=== PATIENT | female | born 1950 | race Caucasian/White ===

== ENCOUNTER 2017-01-16 17:58 | Inpatient (IN) | payer OTHER ==
[~2017-01-16] VITALS: Ht 160 cm; Wt 65.0 kg
[~2017-01-16 17:58] MED LIST changes: -AMOX875T PO; -DEXAMETHASONE SOD INJ 4 MG/ML VIAL ONE; -FENTANYL CITRATE INJ 50 MCG/1 ML 2 ML VIAL ONE; -GLYCOPYRROLATE INJ 0.2 MG/ML VIAL ONE; -MIDAZOLAM HCL 1 MG/ML 2ML VIAL ONE; -NEOSTIGMINE METHYLSULFATE 5 MG/5 ML SYR ONE; -ONDANSETRON INJ 2 MG/ML 2 ML VIAL ONE; -OPTIRAY 320 IV PRN; -OXYC-57 PO; -PROPOFOL IV EMULSION 10 MG/ML 20 ML VIAL IV ONE; -ROCURONIUM BROMIDE 10 MG/ML 5 ML VIAL ONE; -SUCCINYLCHOLINE CHLORIDE 20 MG/ML 10 ML VIAL IV ONE
[2017-01-16] MEDS ORDERED: SODIUM CHLORIDE 0.9% 1000ML 1,000 ML IV STA ×2 (18:21)
[2017-01-16] MEDS ORDERED: CEFOXITIN SOD 2 GM VIAL IV STA (18:39)
[2017-01-16] MEDS ORDERED: HYDROmorphone INJ 1 MG/ML SYR IV PRN (19:15)
[2017-01-16] MEDS ORDERED: FENTANYL CITRATE INJ 50 MCG/1 ML 2 ML VIAL IV PRN (19:15)
[2017-01-16] MEDS ORDERED: EpHEDrine SULFATE INJ 50 MG/ML AMP IV PRN (19:15)
[2017-01-16] MEDS ORDERED: ATROPINE SULFATE 0.1 MG/ML 5ML SYR IV PRN (19:15)
[2017-01-16] MEDS ORDERED: ONDANSETRON INJ 2 MG/ML 2 ML VIAL IV PRN ×2 (19:15→19:45)
[2017-01-16 19:25] LABS: BASO % 0.1 %; BASO ABS # 0.01 K/uL (0-0.2); COMPLETE YES; EOS % 0.8 %; HEMATOCRIT 39.1 % (37-47); IG% 0.1 %; LYMPH % 16.6 %; LYMPH ABS # 2.25 K/uL (1.2-3.4); MEAN CELL VOLUME 80.8 fL (80-100); MEAN CORPUSCULAR HEMOGLOBIN 27.9 pg (25-34); MEAN CORPUSCULAR HGB CONC 34.5 g/dl (32-36); MEAN PLATELET VOLUME 11.8 fL (7.4-10.4); MONO % 7.4 %; PLATELET COUNT 200 K/uL (130-400); RED BLOOD COUNT 4.84 M/uL (4.2-5.4); WHITE BLOOD COUNT 13.52 K/uL (4.8-10.8)
--- NOTE | 2017-01-16 19:35 | History and Physical ---
History & Physical Date Jan 16, 2017. History of Present Illness The patient is a 66 year old female with complaints of acute appendicitis. She presented with complaints of persistent right lower quadrant abdominal pain that began 4 days ago that has localized to her right lower quadrant. Her pain is worse with movement. She also has nausea and a fever. A CT scan shows early acute appendicitis. She notes that she ate some yogurt this morning around 0800 but has not eaten anything since. Past Medical/Surgical History Medical Problems: (1) Hypertension (2) Lyme disease (3) Meniscus tear Surgical Problems: (1) H/O thyroidectomy (2) S/P hysterectomy Additional History Hepatic Disease: No Endocrine Disorder: Yes Kidney Disease: No Hypertension: Yes Heart Disease: No Bleeding Tendencies: No Infectious Diseases: No Other: Lyme disease Allergies Coded Allergies: No Known Allergies (Verified , 09/24/15) Home Medications Scheduled Benazepril Hcl (Benazepril), 10 MG PO DAILY Calcium/Vitamin D (Os-Rodrick 500 Plus D), 1 TAB PO DAILY Hydrochlorothiazide (Hctz), 25 MG PO DAILY Levothyroxine Sodium (Synthroid), 112 MCG PO DAILY Multivitamin (Multivitamin), 1 TAB PO DAILY Potassium Chloride (K-Tabs), 10 MEQ PO 2XWK Physical Examination Skin: warm/dry, no rash Eyes: normal inspection, EOMI, sclerae normal ENT: normal ENT inspection Head: normocephalic, atraumatic Neck: supple, no adenopathy, trachea midline Respiratory/Chest: lungs clear, normal breath sounds, no respiratory distress Cardiovascular: regular rate, rhythm, no edema, no murmur Abdomen / GI: normal bowel sounds, + pertinent finding (RLQ tenderness with guarding) Back: normal inspection Extremities: normal inspection Genitourinary - Female: external genitalia normal Neurologic/Psych: no motor/sensory deficits, alert, oriented x 3 Addiitonal Comments: CT OF THE ABDOMEN AND PELVIS WITH CONTRAST CLINICAL HISTORY: Right lower quadrant abdominal pain. COMPARISON STUDY: None. TECHNIQUE: Following IV administration of 116 mL of Optiray-320, axial images of the abdomen and pelvis were obtained from the lung bases to the proximal femurs. Images were reviewed in the axial, sagittal, and coronal planes. IV contrast was administered without complication. Oral contrast was administered. CT DOSE: 530.54 mGy.cm FINDINGS: An 8 mm right hepatic lobe cyst is noted. The spleen, adrenal glands and kidneys are unremarkable. There is no hydronephrosis. There is mild dilatation of the common bile duct which measures 1 cm in caliber. Irregularity of the gallbladder fundus with multiple cystic spaces suggests adenomyomatosis, a finding of no clinical significance. There is no evidence for a bowel obstruction. The appendix is moderately dilated, measuring 1.2 cm in caliber. The appendix is fluid-filled and contains appendicolith. There is moderate periappendiceal infiltration with no free air or abscess. There is left colon diverticulosis without evidence for acute diverticulitis. There is no lymphadenopathy. No suspicious skeletal lesions are present. There is a small fat-containing umbilical hernia. IMPRESSION: 1. Acute appendicitis. Moderate periappendiceal infiltration. No free air or abscess. 2. Mild dilatation of the common bile duct, a nonspecific finding which could be correlated with obstructive liver function tests. Diagnosis Acute appendicitis ASA Classification: ASA Class II Plan of Treatment -IVF -IV mefoxin -to OR for lap appendectomy -consent obtained
[2017-01-16 19:43] LABS: BUN/CREATININE RATIO 18.1 (10-20); CALCIUM 9.3 mg/dl (8.5-10.1); CREATININE 0.63 mg/dl (0.60-1.20); POTASSIUM 3.6 mmol/L (3.5-5.1)
[2017-01-16] MEDS ORDERED: BUPIVACAINE/EPINEPHRINE 0.5% MPF 1:200,000 30 ML VIAL ONE (19:43)
[2017-01-16] MEDS ORDERED: ZOLPIDEM TARTRATE 5 MG TAB PO PRN (19:45)
[2017-01-16] MEDS ORDERED: ALUMINUM/MAGNESIUM/SIMETH (MAALOX MAX) 30 ML UDC PO PRN (19:45)
[2017-01-16] MEDS ORDERED: MoRPHine SULFATE 2 MG/ML CARP IV PRN (19:45)
[2017-01-16] MEDS ORDERED: MAGNESIUM HYDROXIDE SUSP 30 ML UDC PO PRN (19:45)
[2017-01-16] MEDS ORDERED: ACETAMINOPHEN 325 MG TAB PO PRN (19:45)
[2017-01-16] MEDS ORDERED: POLYETHYLENE (MIRALAX) 17 GM PACK PO PRN (19:45)
[2017-01-16 19:50] LABS: URINE APPEARANCE CLEAR (CLEAR); URINE BILIRUBIN NEG (NEG); URINE COLOR YELLOW; URINE EPITHELIAL CELL AUTO 0-5 /lpf (0-5); URINE NITRITE NEG (NEG); URINE SPECIFIC GRAVITY 1.027 (1.000-1.030); UROBILINOGEN NEG (NEG); ZZUR CULT IF INDIC CLEAN CATCH NO
[2017-01-16 19:51] LABS: MANUAL MICROSCOPIC REQUIRED? NO; REVIEW REQ? NO
--- NOTE | 2017-01-16 20:43 | [facility] Post Operative Brief Note ---
Immediate Operative Summary Operative Date Jan 16, 2017. Pre-Operative Diagnosis Acute Appendicitis Post-Operative Diagnosis Acute Gangerous Appendicitis Procedure(s) Performed Laparoscopic Appendectomy Surgeon Dr. Eldon Diaz Film Composer Surgeon(s) None Estimated Blood Loss 25ml Findings Above Specimens A. Appendix Drains RLQ rodger Anesthesia GETA Complication(s) None Disposition Recovery Room / PACU
[2017-01-16] MEDS ORDERED: MoRPHine SULFATE 4 MG/ML 1 ML CARP\\VIAL IV PRN (20:45)
[2017-01-16] MEDS ORDERED: FENTANYL CITRATE INJ 50 MCG/1 ML 2 ML VIAL ONE (21:00)
--- NOTE | 2017-01-16 21:06 | OPERATIVE REPORT ---
DATE OF OPERATION: 01/16/2017 PREOPERATIVE DIAGNOSIS: Acute appendicitis. POSTOPERATIVE DIAGNOSIS: Acute gangrenous appendicitis. PROCEDURE PERFORMED: Laparoscopic appendectomy. SURGEON: Dr. Eldon Diaz. FOIL SPOOLER: None. ANESTHESIA: General endotracheal with 0.5% Marcaine with epinephrine local. ESTIMATED BLOOD LOSS: 25 mL. COMPLICATIONS: None. SPECIMENS: Appendix, sent to pathology. DRAINS: Right lower quadrant Pino drain placed. INDICATION FOR PROCEDURE: This is a 66-year-old white female who was admitted through the ER with 4 days of abdominal pain and had a CT scan which showed acute appendicitis. On exam, she had peritoneal signs. We recommended a laparoscopic appendectomy. We talked about the risk of an open procedure, bowel or blood vessel injury, abscess, bleeding, or postop wound problems. She understands this and wishes to proceed. DESCRIPTION OF PROCEDURE: The patient was taken to the OR and underwent excellent general endotracheal anesthesia. Abdomen was prepped and draped in normal sterile fashion. Transverse supraumbilical incision was made and a Veress needle was inserted into peritoneal cavity with upper tension on her abdominal wall. Good pneumoperitoneum was then achieved to 15 mmHg pressure. A visualized 11 port was then placed as the Veress was removed. A 5 suprapubic, a 5 right upper quadrant and a 12 left lower quadrant port were placed in normal fashion. Some adhesions were taken down from the pelvis. She had a large right lower quadrant phlegmon. The patient was placed in head down and rolled to the left. The omentum was rolled back, her appendix could be seen plastered to her right lower quadrant. Using blunt dissection, this was freed. This was also stuck to the wall of the colon. A grasper was used to grasp the cecum at the tenia and the base of the appendix was identified. Dissection was then taken at the base here to go through the mesentery window. Once this was done, the base of the appendix was freed. A MARIANNA 45 purple load was used to transect the appendix at its base. The staple line was intact and had minimal bleeding. Once this was done, the rest of the mesoappendix was taken down with a harmonic scalpel. The appendix itself was gangrenous and we made a small rip in the appendix and tried to mobilize it, but there was no free spillage of fecal material. The appendix was then brought out with an Endobag and sent for pathologic evaluation. The pneumoperitoneum and the port were replaced. A liter and half of irrigation was used to irrigate the right lower quadrant. There was no sign of bleeding, no sign of any infectious material. The pelvis looked fine, the terminal ileum looked fine and no other abnormalities were noted. A Pino drain was then placed through the suprapubic port into the right lower quadrant and secured with nylon suture. The rest of the ports were removed and pneumoperitoneum was decompressed. 0 Vicryl was used to close the fascial defect at 11 and 12 ports. Skin was closed with interrupted Vicryls, Steri-Strips and benzoin were used to reinforce the incision and sterile dressings were applied. The patient tolerated the procedure well without any complications, sent to post-recovery for a period of observation and be sent to floor for her care. I attest to the content of the Intraoperative Record and any orders documented therein. Any exceptio ns are noted below.
[2017-01-16] MEDS ORDERED: ONDANSETRON INJ 2 MG/ML 2 ML VIAL ONE (21:07)
[2017-01-16] MEDS ORDERED: HYDROmorphone INJ 2 MG/ML SYR/VIAL ONE (21:24)
--- NOTE | 2017-01-16 21:36 | Anesthesiology Progress Note ---
Anesthesia Post Op Note Date & Time Jan 16, 2017 at 21:36 Vital Signs Pain Intensity: 8.0 Vital Signs Past 12 Hours Date Time Temp Pulse Resp B/P Pulse Ox O2 Delivery O2 Flow Rate FiO2 01/16/17 21:25 75 16 131/87 95 Mask 5 01/16/17 21:15 103 20 146/85 95 Mask 10 01/16/17 21:05 93 20 168/74 96 Mask 10 01/16/17 21:01 37.0 95 20 178/79 96 Mask 10 01/16/17 19:38 37.0 91 18 154/87 98 01/16/17 18:29 37.7 97 16 165/90 96 Room Air Notes Mental Status: alert / awake / arousable, participated in evaluation Pt Amnestic to Procedure: Yes Nausea / Vomiting: adequately controlled Pain: adequately controlled Airway Patency, RR, SpO2: stable & adequate BP & HR: stable & adequate Hydration State: stable & adequate Anesthetic Complications: no major complications apparent
--- NOTE | 2017-01-16 21:36 | EMERGENCY ROOM VISIT NOTE ---
History Report prepared by Cassandra: Cassie Moseley Under the Supervision of: Dr. Michael Miller M.D. First contact with patient: 18:21 Chief Complaint: ABDOMINAL PAIN Stated Complaint: ABD PAIN,APPENDICITIS History of Present Illness The patient is a 66 year old female who presents to the Emergency Room with complaints of persistent right lower quadrant abdominal pain that began 4 days ago. Since then, it has localized to her right lower quadrant. Her pain is worse with movement. It occasionally radiates through her upper abdomen. She also complains of occasional nausea. Today, the patient was seen by her PCP in [facility] and had an abdominal/pelvis CT scan. Her CT scan revealed acute appendicitis. She notes that she ate some yogurt this morning around 0800 but has not eaten anything since. Pt denies LOC, headache, fevers, chills, diaphoresis, visual changes, neck pain, chest pain, breathing difficulties, vomiting, back pain, melena, hematochezia, urinary symptoms, numbness, weakness , lymphadenopathy, rash, or other complaints. Source of History: patient Onset: 4 days ago Position: abdomen (RLQ) Timing: other (persistent) Modifying Factors (Worsening): movement Associated Symptoms: + nausea Review of Systems See HPI for pertinent positives and negatives. A total of ten systems were reviewed and were otherwise negative. Past Medical & Surgical Medical Problems: (1) Acute appendicitis (2) Hypertension (3) Lyme disease (4) Meniscus tear Surgical Problems: (1) H/O thyroidectomy (2) S/P hysterectomy Family History FH: lung cancer SISTER Social History Smoking Status: Former Smoker Alcohol Use: none Drug Use: none Marital Status: Housing Status: unknown Occupation Status: employed Current/Historical Medications Scheduled Benazepril Hcl (Benazepril), 10 MG PO DAILY Calcium/Vitamin D (Os-Rodrick 500 Plus D), 1 TAB PO DAILY Hydrochlorothiazide (Hctz), 25 MG PO DAILY Levothyroxine Sodium (Synthroid), 112 MCG PO DAILY Multivitamin (Multivitamin), 1 TAB PO DAILY Potassium Chloride (K-Tabs), 10 MEQ PO 2XWK Allergies Coded Allergies: No Known Allergies (Verified , 09/24/15) Physical Exam Vital Signs Date Time Temp Pulse Resp B/P Pulse Ox O2 Delivery O2 Flow Rate FiO2 01/16/17 21:25 75 16 131/87 95 Mask 5 3/13/17 21:15 103 20 146/85 95 Mask 10 01/16/17 21:05 93 20 168/74 96 Mask 10 01/16/17 21:01 37.0 95 20 178/79 96 Mask 10 01/16/17 19:38 37.0 91 18 154/87 98 01/16/17 18:29 37.7 97 16 165/90 96 Room Air Physical Exam GENERAL: Awake, alert, well-appearing, in no distress HENT: Normocephalic, atraumatic. Oropharynx unremarkable. EYES: Normal conjunctiva. Sclera non-icteric. NECK: Supple. No nuchal rigidity. FROM. No JVD. RESPIRATORY: Clear to auscultation. CARDIAC: Borderline tachycardic rate, normal rhythm. Extremities warm and well perfused. Pulses equal. ABDOMEN: Soft, non-distended. Right lower quadrant tenderness to percussion with rebound and guarding. No masses. RECTAL: Deferred. MUSCULOSKELETAL: Chest examination reveals no tenderness. The back is symmetrical on inspection without obvious abnormality. There is no CVA tenderness to palpation. No joint edema. LOWER EXTREMITIES: Calves are equal size bilaterally and non-tender. No edema. No discoloration. NEURO: Normal sensorium. No sensory or motor deficits noted. SKIN: No rash or jaundice noted. Medical Decision & Procedures ER Provider Diagnostic Interpretation: Radiology results as stated below per my review and radiologist interpretation: CT OF THE ABDOMEN AND PELVIS WITH CONTRAST CLINICAL HISTORY: Right lower quadrant abdominal pain. COMPARISON STUDY: None. TECHNIQUE: Following IV administration of 116 mL of Optiray-320, axial images of the abdomen and pelvis were obtained from the lung bases to the proximal femurs. Images were reviewed in the axial, sagittal, and coronal planes. IV contrast was administered without complication. Oral contrast was administered. CT DOSE: 530.54 mGy.cm FINDINGS: An 8 mm right hepatic lobe cyst is noted. The spleen, adrenal glands and kidneys are unremarkable. There is no hydronephrosis. There is mild dilatation of the common bile duct which measures 1 cm in caliber. Irregularity of the gallbladder fundus with multiple cystic spaces suggests adenomyomatosis, a finding of no clinical significance. There is no evidence for a bowel obstruction. The appendix is moderately dilated, measuring 1.2 cm in caliber. The appendix is fluid-filled and contains appendicolith. There is moderate periappendiceal infiltration with no free air or abscess. There is left colon diverticulosis without evidence for acute diverticulitis. There is no lymphadenopathy. No suspicious skeletal lesions are present. There is a small fat-containing umbilical hernia. IMPRESSION: 1. Acute appendicitis. Moderate periappendiceal infiltration. No free air or abscess. 2. Mild dilatation of the common bile duct, a nonspecific finding which could be correlated with obstructive liver function tests. Electronically signed by: Miguel Waters M.D. 01/16/2017 5:19 PM Dictated Date/Time: 01/16/2017 5:13 PM Laboratory Results 01/16/17 19:05 Red Blood Count 4.84, Mean Corpuscular Volume 80.8, Mean Corpuscular Hemoglobin 27.9, Mean Corpuscular Hemoglobin Concent 34.5, Mean Platelet Volume 11.8, Neutrophils (%) (Auto) 75.0, Lymphocytes (%) (Auto) 16.6, Monocytes (%) (Auto) 7.4, Eosinophils (%) (Auto) 0.8, Basophils (%) (Auto) 0.1, Neutrophils # (Auto) 10.13, Lymphocytes # (Auto) 2.25, Monocytes # (Auto) 1.00, Eosinophils # (Auto) 0.11, Basophils # (Auto) 0.01 01/16/17 19:05 Test 01/16/17 19:05 White Blood Count 13.52 K/uL (4.8-10.8) Red Blood Count 4.84 M/uL (4.2-5.4) Hemoglobin 13.5 g/dL (12.0-16.0) Hematocrit 39.1 % (37-47) Mean Corpuscular Volume 80.8 fL (80-100) Mean Corpuscular Hemoglobin 27.9 pg (25-34) Mean Corpuscular Hemoglobin Concent 34.5 g/dl (32-36) Platelet Count 200 K/uL (130-400) Mean Platelet Volume 11.8 fL (7.4-10.4) Neutrophils (%) (Auto) 75.0 % Lymphocytes (%) (Auto) 16.6 % Monocytes (%) (Auto) 7.4 % Eosinophils (%) (Auto) 0.8 % Basophils (%) (Auto) 0.1 % Neutrophils # (Auto) 10.13 K/uL (1.4-6.5) Lymphocytes # (Auto) 2.25 K/uL (1.2-3.4) Monocytes # (Auto) 1.00 K/uL (0.11-0.59) Eosinophils # (Auto) 0.11 K/uL (0-0.5) Basophils # (Auto) 0.01 K/uL (0-0.2) RDW Standard Deviation 40.2 fL (36.4-46.3) RDW Coefficient of Variation 13.5 % (11.5-14.5) Immature Granulocyte % (Auto) 0.1 % Immature Granulocyte # (Auto) 0.02 K/uL (0.00-0.02) Urine Color YELLOW Urine Appearance CLEAR (CLEAR) Urine pH 7.0 (4.5-7.5) Urine Specific [place] 1.027 (1.000-1.030) Urine Protein NEG (NEG) Urine Glucose (UA) NEG (NEG) Urine Ketones NEG (NEG) Urine Occult Blood NEG (NEG) Urine Nitrite NEG (NEG) Urine Bilirubin NEG (NEG) Urine Urobilinogen NEG (NEG) Urine Leukocyte Esterase TRACE (NEG) Urine WBC (Auto) 1-5 /hpf (0-5) Urine RBC (Auto) 0-4 /hpf (0-4) Urine Hyaline Casts (Auto) 0 /lpf (0-5) Urine Epithelial Cells (Auto) 0-5 /lpf (0-5) Urine Bacteria (Auto) NEG (NEG) Anion Gap 8.0 mmol/L (3-11) Est Creatinine Clear Calc Drug Dose 77.5 ml/min Estimated GFR () 106.8 Estimated GFR (Non- 92.2 BUN/Creatinine Ratio 18.1 (10-20) Calcium Level 9.3 mg/dl (8.5-10.1) Total Bilirubin 0.8 mg/dl (0.2-1) Direct Bilirubin 0.2 mg/dl (0-0.2) Aspartate Amino Transf (AST/SGOT) 17 U/L (15-37) Alanine Aminotransferase (ALT/SGPT) 29 U/L (12-78) Alkaline Phosphatase 93 U/L (45-117) Total Protein 7.8 gm/dl (6.4-8.2) Albumin 3.6 gm/dl (3.4-5.0) Lipase 107 U/L (73-393) Laboratory results reviewed by me Medications Administered Medications (Trade) Dose Ordered Sig/[facility] Route Start Time Stop Time Status Last Admin Dose Admin Sodium Chloride 1,000 ml @ 125 mls/hr Q8H STAT IV 01/16/17 18:21 01/17/17 02:20 01/16/17 18:21 125 MLS/HR Sodium Chloride (Nss 1000ml) 1,000 ml @ 999 mls/hr Q1H1M STAT IV 01/16/17 18:21 01/16/17 19:21 DC 01/16/17 18:21 999 MLS/HR Cefoxitin Sodium (Mefoxin IV) 2,000 mg NOW STAT IV 01/16/17 18:39 01/16/17 18:40 DC 01/16/17 18:39 2,000 MG Bupivacaine HCl/ Epinephrine Bitart (Sensorcaine/ Epinephrine 0.5% Mpf 1:200,000) 30 ml STK-MED ONCE .ROUTE 01/16/17 19:43 01/16/17 19:47 DC 01/16/17 19:43 20 ML Fentanyl Citrate (Fentanyl Inj) 100 mcg STK-MED ONCE .ROUTE 01/16/17 21:00 01/16/17 21:04 DC 01/16/17 21:19 25 MCG Ondansetron HCl (Zofran Inj) 4 mg STK-MED ONCE .ROUTE 01/16/17 21:07 01/16/17 21:10 DC 01/16/17 21:31 4 MG Hydromorphone HCl (Dilaudid Inj) 2 mg STK-MED ONCE .ROUTE 01/16/17 21:24 01/16/17 21:27 DC 01/16/17 21:25 0.25 MG ECG Indication: abdominal pain Rate (beats per minute): 103 Rhythm: sinus tachycardia Findings: Q waves (Septal), no acute ischemic change, no ectopy ED Course 182: Ordered NSS 1000 ml @ 999 mls/hr IV, NSS 1000 ml @ 125 mls/hr IV. 1836: The patient was evaluated in room B4. A complete history and physical exam was performed. I discussed the test results and treatment plan with her. The patient will be evaluated for further management. 183: Ordered Mefoxin 2000 mg IV. 1849: I discussed the case with Dr. Diaz - General Surgery. The patient will be evaluated for further management. Medical Decision Triage Nursing notes reviewed. The patient's presentation and history were concerning for abdominal pain. Etiologies such as appendicitis, diverticulitis, obstruction, inflammatory bowel disease, renal colic, PUD, biliary pathology, pancreatitis, mesenteric ischemia, aortic pathology, infections, genitourinary, UTI, perforated viscus, as well as others were entertained. The patient was evaluated. Her abdominal examination was concerning for appendicitis. She had a leukocytosis on CBC. LFTs were unremarkable. The patient also had appendicitis on her CT scan. Consultation was made with general surgery. The patient was given normal saline. She was nothing by mouth. She declined analgesia. The patient was given Mefoxin. The patient was taken to the operative suite for further management. The chart was completed utilizing [employer] Speech voice recognition software. Grammatical errors, random word insertions, pronoun errors, and incomplete sentences are an occasional consequence of this system due to software limitations, ambient noise, and hardware issues. Any formal questions or concerns about the content, text, or information contained within the body of this dictation should be directly addressed to the physician for clarification. Consults Time Called: 1846 Consulting Physician: Dr. Diaz - General Surgery Returned Call: [phone] I discussed the case with him. The patient will be evaluated for further management. Impression Primary Impression: Acute appendicitis Scribe Attestation The scribe's documentation has been prepared under my direction and personally reviewed by me in its entirety. I confirm that the note above accurately reflects all work, treatment, procedures, and medical decision making performed by me. Departure Information Dispostion Being Evaluated By Surgeon Daryl Artis M.D. (PCP) Patient Instructions My [facility]
[2017-01-16 21:55] VITALS: O2SAT 94
[2017-01-16] MEDS: LACTATED RINGER'S 1000ML 1,000 ML IV SCH (22:08)
[2017-01-16 22:09] VITALS: BP 147/75; PULSE 108; TEMP 37; Ht 160 cm; Wt 65.0 kg
[2017-01-16 22:30] VITALS: BP 149/72; PULSE 111; TEMP 37.1; O2SAT 91
[2017-01-16 23:00] VITALS: BP 116/77; PULSE 115; TEMP 36.9; O2SAT 93
[2017-01-17] VITALS (13 sets, daily range): BP systolic 96–120; BP diastolic 55–74; PULSE 69–117; TEMP 36.7–37.6; O2SAT 85–98
[2017-01-17] MEDS: CEFOXITIN IV 2,000 MG in DEXTROSE 5% 50ML 50 ML IV SCH ×3 (01:51→18:06)
[2017-01-17] MEDS: OXYCODONE/ACETAMINOPHEN 5-325 TAB PO PRN ×3 (05:29→22:11)
[2017-01-17] MEDS: LEVOTHYROXINE 112 MCG TAB PO SCH (05:29)
[2017-01-17] MEDS: LACTATED RINGER'S 1000ML 1,000 ML IV SCH ×2 (05:30→15:39)
[2017-01-17] MEDS ORDERED: COUGH DROP (SUGAR FREE) LOZ 24 LOZ/1 BOX ONE (07:36)
[2017-01-17] MEDS: ENALAPRIL MALEATE 10 MG TAB PO SCH (08:59)
[2017-01-17] MEDS: HYDROCHLOROTHIAZIDE 25 MG TAB PO SCH (08:59)
[2017-01-17] MEDS: MULTIVITAMIN TAB PO SCH (09:00)
--- NOTE | 2017-01-17 09:05 | Surgery Progress Note ---
Surgery Progress Note Date of Service Jan 17, 2017. Subjective Post OP Day: 1 + complaints (some emesis), + diet (clears), + feeling well, + nausea, + vomiting, No bowel movement, No flatus Objective Vital Signs: Date Time Temp Pulse Resp B/P Pulse Ox O2 Delivery O2 Flow Rate FiO2 01/17/17 08:28 93 Nasal Cannula 2.0 01/17/17 08:06 85 Room Air 01/17/17 07:45 96 2.0 01/17/17 07:15 37.6 105 16 118/74 96 Nasal Cannula 2.0 01/17/17 05:30 93 Nasal Cannula 2.0 01/17/17 03:17 36.7 102 17 112/70 98 Nasal Cannula 3.0 01/17/17 01:00 37.0 115 16 120/72 96 Nasal Cannula 3.0 01/17/17 00:00 37.3 117 15 96/55 94 Nasal Cannula 3.0 01/16/17 23:00 36.9 115 18 116/77 93 Nasal Cannula 3.0 01/16/17 22:30 37.1 111 16 149/72 91 Nasal Cannula 3.0 01/16/17 22:09 37.0 108 16 147/75 01/16/17 21:55 94 Nasal Cannula 3.0 01/16/17 21:45 72 16 114/67 95 Nasal Cannula 3 01/16/17 21:35 36.9 72 16 142/73 95 Nasal Cannula 3 01/16/17 21:25 75 16 131/87 95 Mask 5 01/16/17 21:15 103 20 146/85 95 Mask 10 01/16/17 21:15 Nasal Cannula 3.0 01/16/17 21:05 93 20 168/74 96 Mask 10 01/16/17 21:01 37.0 95 20 178/79 96 Mask 10 01/16/17 19:38 37.0 91 18 154/87 98 01/16/17 18:29 37.7 97 16 165/90 96 Room Air Physical Exam: Pino drainage (serosanguinous) General Appearance: WD/WN, no apparent distress Head: normocephalic, atraumatic Neck: supple, trachea midline Respiratory/Chest: lungs clear Cardiovascular: regular rate, rhythm Abdomen: normal bowel sounds, soft, + distended, + tenderness (mild) Incision(s): intact (dressings) Extremities: non-tender, no pedal edema Laboratory Results: Results Past 24 Hours Test 01/16/17 19:05 Range/Units White Blood Count 13.52 4.8-10.8 K/uL Red Blood Count 4.84 4.2-5.4 M/uL Hemoglobin 13.5 12.0-16.0 g/dL Hematocrit 39.1 37-47 % Mean Corpuscular Volume 80.8 80-100 fL Mean Corpuscular Hemoglobin 27.9 25-34 pg Mean Corpuscular Hemoglobin Concent 34.5 32-36 g/dl Platelet Count 200 130-400 K/uL Mean Platelet Volume 11.8 7.4-10.4 fL Neutrophils (%) (Auto) 75.0 % Lymphocytes (%) (Auto) 16.6 % Monocytes (%) (Auto) 7.4 % Eosinophils (%) (Auto) 0.8 % Basophils (%) (Auto) 0.1 % Neutrophils # (Auto) 10.13 1.4-6.5 K/uL Lymphocytes # (Auto) 2.25 1.2-3.4 K/uL Monocytes # (Auto) 1.00 0.11-0.59 K/uL Eosinophils # (Auto) 0.11 0-0.5 K/uL Basophils # (Auto) 0.01 0-0.2 K/uL RDW Standard Deviation 40.2 36.4-46.3 fL RDW Coefficient of Variation 13.5 11.5-14.5 % Immature Granulocyte % (Auto) 0.1 % Immature Granulocyte # (Auto) 0.02 0.00-0.02 K/uL Urine Color YELLOW Urine Appearance CLEAR CLEAR Urine pH 7.0 4.5-7.5 Urine Specific Goodrich 1.027 1.000-1.030 Urine Protein NEG NEG Urine Glucose (UA) NEG NEG Urine Ketones NEG NEG Urine Occult Blood NEG NEG Urine Nitrite NEG NEG Urine Bilirubin NEG NEG Urine Urobilinogen NEG NEG Urine Leukocyte Esterase TRACE NEG Urine WBC (Auto) 1-5 0-5 /hpf Urine RBC (Auto) 0-4 0-4 /hpf Urine Hyaline Casts (Auto) 0 0-5 /lpf Urine Epithelial Cells (Auto) 0-5 0-5 /lpf Urine Bacteria (Auto) NEG NEG Sodium Level 135 136-145 mmol/L Potassium Level 3.6 3.5-5.1 mmol/L Chloride Level 94 98-107 mmol/L Carbon Dioxide Level 33 21-32 mmol/L Anion Gap 8.0 3-11 mmol/L Blood Urea Nitrogen 11 7-18 mg/dl Creatinine 0.63 0.60-1.20 mg/dl Est Creatinine Clear Calc Drug Dose 77.5 ml/min Estimated GFR () 106.8 Estimated GFR (Non- 92.2 BUN/Creatinine Ratio 18.1 10-20 Random Glucose 97 70-99 mg/dl Calcium Level 9.3 8.5-10.1 mg/dl Total Bilirubin 0.8 0.2-1 mg/dl Direct Bilirubin 0.2 0-0.2 mg/dl Aspartate Amino Transf (AST/SGOT) 17 15-37 U/L Alanine Aminotransferase (ALT/SGPT) 29 12-78 U/L Alkaline Phosphatase 93 45-117 U/L Total Protein 7.8 6.4-8.2 gm/dl Albumin 3.6 3.4-5.0 gm/dl Lipase 107 73-393 U/L Assessment & Plan Acute gangrenous appendicitis -con't IV abx 1-2 more days -clears -await bowel function -leave drain till discharge -labs in AM
[2017-01-17] MEDS ORDERED: AMOX875T PO (09:09)
[2017-01-17] MEDS ORDERED: OXYC-57 PO (09:09)
--- NOTE | 2017-01-17 09:13 | Discharge Instructions ---
Discharge Instructions Date of Service Jan 17, 2017. Admission Reason for Admission: Acute Appendicitis Discharge Discharge Diagnosis / Problem: gangrenous appendicitis Discharge Goals Goal(s): Therapeutic intervention Activity Recommendations Activity Limitations: per Instructions/Follow-up section Lifting Limitations: no more than 25 pounds Exercise/Sports Limitations: until after follow-up appointment May Resume Sexual Activity: when tolerated Shower/Bathe: no limitations Driving or Machine Use: resume 3 days after discharge (as long as not taking narcotics) . Current Hospital Diet Patient's current hospital diet: Clear Liquid Diet Discharge Diet Recommended Diet: Regular Diet Procedures Procedures Performed: Laparoscopic Appendectomy Pending Studies Studies pending at discharge: no Laboratory Results Lipid Panel Test 10/25/16 10:37 Range/Units Triglycerides Level 116 0-150 mg/dl Cholesterol Level 243 H 0-200 mg/dl HDL Cholesterol 69 mg/dl Cholesterol/HDL Ratio 3.5 LDL Cholesterol, Calculated 151 mg/dl Work Instructions Return To Work: after follow-up Medical Emergencies . Who to Call and When: Medical Emergencies: If at any time you feel your situation is an emergency, please call 911 immediately. . Non-Emergent Contact Non-Emergency issues call your: Primary Care Provider, Surgeon Call Non-Emergent contact if: temperature is above 101.5, your pain is not controlled, your pain is worsening, your pain is concerning you, wound has increased redness, wound has increased pain, you have any medication questions . "Provider Documentation" section prepared by Eldon Diaz. VTE Core Measure Inpt VTE Proph given/why not?: SCD's [place] Drug Monitoring Program Search Results: patient reviewed within database
[2017-01-18] MEDS: LACTATED RINGER'S 1000ML 1,000 ML IV SCH ×3 (01:23→21:30)
[2017-01-18] MEDS: LEVOTHYROXINE 112 MCG TAB PO SCH (05:46)
[2017-01-18 07:31] VITALS: BP 110/63; PULSE 83; TEMP 36.7; O2SAT 95
[2017-01-18 07:58] LABS: BUN/CREATININE RATIO 24.8 (10-20); CREATININE 0.56 mg/dl (0.60-1.20); POTASSIUM 3.8 mmol/L (3.5-5.1)
[2017-01-18 08:03] LABS: ALB/GLOB RATIO 0.7 (0.9-2)
[2017-01-18 08:06] LABS: COMPLETE YES; EOS % 0.8 %; HEMATOCRIT 30.2 % (37-47); IG% 0.3 %; LYMPH ABS # 1.27 K/uL (1.2-3.4); MEAN CELL VOLUME 81.6 fL (80-100); MEAN CORPUSCULAR HEMOGLOBIN 26.8 pg (25-34); MEAN CORPUSCULAR HGB CONC 32.8 g/dl (32-36); MEAN PLATELET VOLUME 11.4 fL (7.4-10.4); NEUT % 75.9 %; PLATELET COUNT 153 K/uL (130-400); WHITE BLOOD COUNT 9.05 K/uL (4.8-10.8)
--- NOTE | 2017-01-18 08:12 | Surgery Progress Note ---
Surgery Progress Note Date of Service Jan 18, 2017. Subjective Post OP Day: 2 (s/p laparoscopic appendectomy) + diet (tolerating clear liquids), + feeling well, + nausea (last evening, believe it was from the pain medication), + pain controlled, No SOB, No bowel movement, No chest pain, No complaints, No flatus, No vomiting Objective Vital Signs: Date Time Temp Pulse Resp B/P Pulse Ox O2 Delivery O2 Flow Rate FiO2 01/18/17 07:31 36.7 83 16 110/63 95 Room Air 01/17/17 23:55 Nasal Cannula 1.0 01/17/17 22:53 36.7 69 16 100/63 97 Nasal Cannula 2.0 01/17/17 18:55 93 Room Air 01/17/17 16:15 96 Nasal Cannula 1.0 01/17/17 15:21 37.0 99 18 107/69 96 Nasal Cannula 2.0 01/17/17 08:55 102/63 01/17/17 08:28 93 Nasal Cannula 2.0 Physical Exam: TAWNY drainage (serosanguineous ) General Appearance: WD/WN, no apparent distress Head: normocephalic, atraumatic Respiratory/Chest: no respiratory distress, no accessory muscle use Abdomen: normal bowel sounds, non distended, soft, no organomegaly, + tenderness (appropriate post op) Incision(s): clean (dressings clean and dry), dry Extremities: normal range of motion Laboratory Results: Results Past 24 Hours Test 01/18/17 06:50 Range/Units White Blood Count 9.05 4.8-10.8 K/uL Red Blood Count 3.70 4.2-5.4 M/uL Hemoglobin 9.9 12.0-16.0 g/dL Hematocrit 30.2 37-47 % Mean Corpuscular Volume 81.6 80-100 fL Mean Corpuscular Hemoglobin 26.8 25-34 pg Mean Corpuscular Hemoglobin Concent 32.8 32-36 g/dl Platelet Count 153 130-400 K/uL Mean Platelet Volume 11.4 7.4-10.4 fL Neutrophils (%) (Auto) 75.9 % Lymphocytes (%) (Auto) 14.0 % Monocytes (%) (Auto) 9.0 % Eosinophils (%) (Auto) 0.8 % Basophils (%) (Auto) 0.0 % Neutrophils # (Auto) 6.87 1.4-6.5 K/uL Lymphocytes # (Auto) 1.27 1.2-3.4 K/uL Monocytes # (Auto) 0.81 0.11-0.59 K/uL Eosinophils # (Auto) 0.07 0-0.5 K/uL Basophils # (Auto) 0.00 0-0.2 K/uL RDW Standard Deviation 40.7 36.4-46.3 fL RDW Coefficient of Variation 13.4 11.5-14.5 % Immature Granulocyte % (Auto) 0.3 % Immature Granulocyte # (Auto) 0.03 0.00-0.02 K/uL Sodium Level 135 136-145 mmol/L Potassium Level 3.8 3.5-5.1 mmol/L Chloride Level 96 98-107 mmol/L Carbon Dioxide Level 32 21-32 mmol/L Anion Gap 7.0 3-11 mmol/L Blood Urea Nitrogen 14 7-18 mg/dl Creatinine 0.56 0.60-1.20 mg/dl Est Creatinine Clear Calc Drug Dose 87.2 ml/min Estimated GFR () 111.0 Estimated GFR (Non- 95.8 BUN/Creatinine Ratio 24.8 10-20 Random Glucose 98 70-99 mg/dl Total Bilirubin 0.5 0.2-1 mg/dl Aspartate Amino Transf (AST/SGOT) 11 15-37 U/L Alanine Aminotransferase (ALT/SGPT) 16 12-78 U/L Alkaline Phosphatase 59 45-117 U/L Total Protein 5.8 6.4-8.2 gm/dl Albumin 2.4 3.4-5.0 gm/dl Globulin 3.4 2.5-4.0 gm/dl Albumin/Globulin Ratio 0.7 0.9-2 Assessment & Plan POD # 2 s/p Laparoscopic Appendectomy - afebrile - vital signs stable - no return of bowel function yet, normal bowel sounds - abdominal pain controlled and minimal - Leukocytosis resolved Plan: Continue IV antibiotics Encourage ambulation Await return of bowel function to advance diet, continue clears Will leave TAWNY drain until discharge Dr. Mensah has seen and examined patient, agrees with above stated findings and treatment plan. Pt seen and examined. Doing well but still awaiting return of bowel function. Agree with assessment and plan as above.
[2017-01-18] MEDS: HYDROCHLOROTHIAZIDE 25 MG TAB PO SCH (08:27)
[2017-01-18] MEDS: ENALAPRIL MALEATE 10 MG TAB PO SCH (08:27)
[2017-01-18 09:06] LABS: CALCIUM 7.9 mg/dl (8.5-10.1)
[2017-01-18] MEDS: MULTIVITAMIN TAB PO SCH (10:24)
[2017-01-18 15:14] VITALS: BP 123/69; PULSE 64; TEMP 36.8; O2SAT 93
[2017-01-18 19:30] VITALS: BP 161/73; PULSE 74; O2SAT 94
[2017-01-18 22:54] VITALS: BP 138/68; PULSE 93; TEMP 37; O2SAT 88
[2017-01-18 23:10] VITALS: O2SAT 94
[2017-01-18 23:25] VITALS: O2SAT 94
[2017-01-19] MEDS: LEVOTHYROXINE 112 MCG TAB PO SCH (06:15)
[2017-01-19 07:05] VITALS: BP 158/76; PULSE 91; TEMP 37.1; O2SAT 92
[2017-01-19] MEDS: LACTATED RINGER'S 1000ML 1,000 ML IV SCH (07:59)
[2017-01-19] MEDS: ENALAPRIL MALEATE 10 MG TAB PO SCH (09:12)
[2017-01-19] MEDS: HYDROCHLOROTHIAZIDE 25 MG TAB PO SCH (09:12)
[2017-01-19] MEDS: MULTIVITAMIN TAB PO SCH (09:14)
--- NOTE | 2017-01-19 10:50 | Clinical Documentation Query ---
MS. AGARWALSHASTA : CLINICAL DOCUMENTATION QUERY Patient is a 66 year old female who on 01/16 underwent laparoscopic appendectomy for acute gangrenous appendicitis. EBL for the procedure was 25 ml's with subsequently documented losses to date totaling an additional 370 ml's. Preoperative hemoglobin and hematocrit were 13.5 g/dl and 39.1%. POD #2, repeat values are 9.9 g/dl and 30.2%. Net I/O is positive for only about 120 ml's since admission. She is being monitored with I/O and serial hematology. In your clinical opinion is this patient being managed for: ( ) Acute blood loss anemia ( ) Other explanation of clinical findings (Please Explain) ( ) Unable to determine (Please Define) ( ) Need to Discuss ( ) Not Agree The medical record reflects the following clinical findings, treatment, and risk factors. Clinical Indicators: As above Treatment:She is being monitored with I/O and serial hematology. Risk Factors: Acute perioperative blood losses. Please clarify and document your clinical opinion in the progress notes and discharge summary. Terms such as "probable", "suspected", "likely", "questionable", "possible", or "still to be ruled out" are acceptable. IF IN AGREEMENT, YOU MUST DOCUMENT ABOVE DIAGNOSTIC STATEMENT IN DAILY PROGRESS NOTES AND DISCHARGE SUMMARY. This document is not part of the patient's record. Thank You, Brady Trotter, BOZENA [phone]
--- NOTE | 2017-01-19 10:57 | Surgery Progress Note ---
Surgery Progress Note Date of Service Jan 19, 2017. Subjective Post OP Day: 3 + ambulating, + bowel movement, + diet (tolerating clear liquids), + feeling well, + flatus, + pain controlled, No SOB, No chest pain, No complaints, No nausea, No vomiting Objective Vital Signs: Date Time Temp Pulse Resp B/P Pulse Ox O2 Delivery O2 Flow Rate FiO2 01/19/17 10:51 Room Air 01/19/17 07:05 37.1 91 17 158/76 92 Room Air 01/18/17 23:25 94 Room Air 01/18/17 23:10 94 Nasal Cannula 1.0 01/18/17 22:54 37.0 93 16 138/68 88 Room Air 01/18/17 19:30 74 161/73 94 Room Air 01/18/17 16:10 Room Air 01/18/17 15:14 36.8 64 16 123/69 93 Room Air General Appearance: WD/WN, no apparent distress Head: normocephalic, atraumatic Neck: trachea midline Respiratory/Chest: no respiratory distress, no accessory muscle use Abdomen: non distended, soft, + tenderness (appropriate post op, no peritonitis ) Incision(s): clean (dressings intact and dry), dry Assessment & Plan POD # 3 s/p Laparoscopic Appendectomy - afebrile - vital signs stable - + bowel function - abdominal pain controlled and minimal Plan: Advance diet as tolerated Decrease IV fluids to 63 mls/hr Continue po pain medications and home medication Likely discharge this afternoon will remove blessing drain prior to discharge Re-evaluated at 1:45 pm Patient tolerated lunch well, no issues Pain minimal Has not had narcotics for 38 hours Blessing drain removed Discharge home, discharge and Rx given to patient Dr. Mensah has seen and examined patient agrees with assessment and plan. Pt seen and examined. Looks well. Drain removed. OK to discharge home today.
[2017-01-19 12:33] VITALS: BP 178/88; PULSE 82; TEMP 37.3; O2SAT 97
--- NOTE | 2017-01-19 14:40 | Discharge Summary ---
Discharge Summary Dates Admission Date / Time: Jan 16, 2017 at 19:43 Discharge Date: Jan 19, 2017 Dispostion / Condition Discharge Disposition: Home Condition at Discharge: Good Principal Diagnosis (1) Acute appendicitis Consultations / Procedures Consultations: None Procedures: Laparoscopic Appendectomy Pending Studies / Follow-Up None Medication Reconciliation New Medications: Amoxicillin & Pot Clavulanate (Augmentin 875-125 mg) 1 Tab Tab 875 MG PO BID, #14 TAB Oxycodone/Acetaminophen 5MG/325MG (Percocet 5MG/325MG) Tab 1 TABLET PO Q4H PRN for Pain, #30 TAB Continued Medications: Benazepril Hcl (Benazepril) 10 Mg Tab 10 MG PO DAILY, TAB Calcium/Vitamin D (Os-Rodrick 500 Plus D) Tab 1 TAB PO DAILY, TAB Hydrochlorothiazide (Hctz) 25 Mg Tab 25 MG PO DAILY, TAB Levothyroxine Sodium (Synthroid) 112 Mcg Tab 112 MCG PO DAILY, TAB Multivitamin (Multivitamin) Tab 1 TAB PO DAILY, TAB Potassium Chloride (K-Tabs) 10 Meq Tabcr 10 MEQ PO 2XWK USES DR ABDULKADIR CHANGES Admission HPI Per the Admitting provider: The patient is a 66 year old female with complaints of acute appendicitis. She presented with complaints of persistent right lower quadrant abdominal pain that began 4 days ago that has localized to her right lower quadrant. Her pain is worse with movement. She also has nausea and a fever. A CT scan shows early acute appendicitis. She notes that she ate some yogurt this morning around 0800 but has not eaten anything since. Hospital Course (1) Acute appendicitis Resolved Sara was taken to operating room for laparoscopic appendectomy. She tolerated procedure well. A TAWNY drain was placed in the RLQ given gangrenous appendix and near perforation. She was taken to PACU in stable condition and then to the Med/surg floor for postoperative care. She was started on clear liquids, IV antibiotics, IV fluids, IV pain medication and Zofran as needed. Sara had some nausea and emesis on POD # 1 and was taking in clear liquids. No return of bowel function. Had 205 cc of output of the TAWNY drain. On POD # 2, slight nausea but she felt that was due to narcotic pain medications. No vomiting. Leukocytosis resolved. TAWNY drain output 50 cc. Later in the day patient had bowel movement and flatus, diet was advanced to full liquids. POD # 3 Patient again had another bowel movement, diet was advanced to regular diet and tolerated well. IV antibiotics were administered until discharge. She was discharged home in stable condition. She did not have narcotic pain medication for 38 hours prior to discharge. Overall hospital course was uneventful. (2) Anemia Patient underwent Laparoscopic appendectomy and on POD # 2 patients hemoglobin and hematocrit were 9.9/30.2. Pre-operative hemoglobin and hematocrit were 13.5 /39.1. Patient did not have any symptoms of anemia. No lightheadedness, dizziness, chest pain or shortness of breath. Discharge Instructions As given to patient Copies To Primary Care Provider: Daryl Lee M.D.. Problem Qualifiers (1) Acute appendicitis: Acute appendicitis type: with localized peritonitis Qualified Codes: K35.3 - Acute appendicitis with localized peritonitis (2) Anemia: Anemia type: unspecified type Qualified Codes: D64.9 - Anemia, unspecified
[2017-01-19 15:22] VITALS: BP 153/79; PULSE 84; O2SAT 94
[2017-01-19 15:23] VITALS: BP 153/79; PULSE 84; TEMP 37.3; O2SAT 94
== END 2017-01-19 15:40 | disposition home or self-care (01) | DRG 343 ==
LOC: ENRESERVDT → ENRESERVTM → C.EDB 17:59 → C.MSN 19:43
PROVIDERS: ADMIT Surgery; ATTEND Surgery
PROC: 0DTJ4ZZ Resection of Appendix, Percutaneous Endoscopic Approach (ICD-10-PCS; principal; 2017-01-16 19:30)
DX: K35.80 Unspecified acute appendicitis (principal); R11.2 Nausea with vomiting, unspecified; T40.2X5A Adverse effect of other opioids, initial encounter; I10 Essential (primary) hypertension; E89.0 Postprocedural hypothyroidism; J45.909 Unspecified asthma, uncomplicated; Z79.899 Other long term (current) drug therapy; Z87.891 Personal history of nicotine dependence; R10.31 Right lower quadrant pain; R31.9 Hematuria, unspecified

== ENCOUNTER → 2017-01-16 | Outpatient (CLI) | payer OTHER ==
[~2017-01-16] MED LIST: AMOX875T PO; CALC500C70 PO; HYDR25TA4 PO; LEVO112T2 PO; LTN/10 PO; MCRK/10 PO; MULT-506 PO; OXYC-57 PO
[2017-01-16 17:42] LABS: BASO % 0.1 %; BASO ABS # 0.02 K/uL (0-0.2); COMPLETE YES; EOS % 0.8 %; IG% 0.3 %; LYMPH % 16.2 %; LYMPH ABS # 2.19 K/uL (1.2-3.4); MEAN CELL VOLUME 83.8 fL (80-100); MEAN CORPUSCULAR HEMOGLOBIN 28.4 pg (25-34); MEAN CORPUSCULAR HGB CONC 33.9 g/dl (32-36); MEAN PLATELET VOLUME 12.8 fL (7.4-10.4); MONO % 9.1 %; NEUT % 73.5 %; PLATELET COUNT 222 K/uL (130-400); RED BLOOD COUNT 4.89 M/uL (4.2-5.4); WHITE BLOOD COUNT 13.53 K/uL (4.8-10.8)
[2017-01-16 17:51] LABS: URINE EPITHELIAL CELL AUTO 20-30 /lpf (0-5); ZZInitiateTest Complete
[2017-01-16 17:56] LABS: MANUAL MICROSCOPIC REQUIRED? NO; REVIEW REQ? NO
[2017-01-16 18:09] LABS: BLOOD UREA NITROGEN 13 mg/dl (7-18); CALCIUM 9.3 mg/dl (8.5-10.1); CARBON DIOXIDE 33 mmol/L (21-32); CHLORIDE 95 mmol/L (98-107); GLUCOSE 98 mg/dl (70-99); SODIUM 136 mmol/L (136-145)
--- NOTE | 2017-01-19 07:31 | CODING QUERY NO DIAGNOSIS ---
TREATMENT RENDERED WITHOUT A DIAGNOSIS Ayesha ANDINO, To promote full compliance with coding requirements relating to patient care, physician participation is requested in all cases of remote coders uncertainty. Please assist us with providing a diagnosis/symptom for the test(s) below: A diagnosis/symptom was not documented on your Order. A valid diagnosis/symptom is required to bill all insurances. Please remember that we are unable to code a diagnosis of rule out, probable, possible, questionable, or suspected. Tests that require a diagnosis: * URINE MICROSCOPY ONLY DIAGNOSIS: DATE OF SERVICE: 01/16/17 Provider Signature: Date: Thank you Sagar Goldstein [facility] Information Management Once completed, please kindly fax back to [phone] For questions please call [phone]
== END | disposition home or self-care (01) ==
LOC: C.LABPVFM 12:11
PROVIDERS: ATTEND Nurse Practitioner Family
DX: I10 Essential (primary) hypertension (principal); R10.31 Right lower quadrant pain; R31.9 Hematuria, unspecified

== ENCOUNTER → 2017-01-16 | Outpatient (CLI) | payer OTHER ==
[~2017-01-16] MED LIST changes: +DEXAMETHASONE SOD INJ 4 MG/ML VIAL ONE; +FENTANYL CITRATE INJ 50 MCG/1 ML 2 ML VIAL ONE; +GLYCOPYRROLATE INJ 0.2 MG/ML VIAL ONE; +MIDAZOLAM HCL 1 MG/ML 2ML VIAL ONE; +NEOSTIGMINE METHYLSULFATE 5 MG/5 ML SYR ONE; +ONDANSETRON INJ 2 MG/ML 2 ML VIAL ONE; +OPTIRAY 320 IV PRN; +PROPOFOL IV EMULSION 10 MG/ML 20 ML VIAL IV ONE; +ROCURONIUM BROMIDE 10 MG/ML 5 ML VIAL ONE; +SUCCINYLCHOLINE CHLORIDE 20 MG/ML 10 ML VIAL IV ONE
--- NOTE | 2017-01-16 17:20 | DIAGNOSTIC IMAGING REPORT ---
CT OF THE ABDOMEN AND PELVIS WITH CONTRAST CLINICAL HISTORY: Right lower quadrant abdominal pain. COMPARISON STUDY: None. TECHNIQUE: Following IV administration of 116 mL of Optiray-320, axial images of the abdomen and pelvis were obtained from the lung bases to the proximal femurs. Images were reviewed in the axial, sagittal, and coronal planes. IV contrast was administered without complication. Oral contrast was administered. CT DOSE: 530.54 mGy.cm FINDINGS: An 8 mm right hepatic lobe cyst is noted. The spleen, adrenal glands and kidneys are unremarkable. There is no hydronephrosis. There is mild dilatation of the common bile duct which measures 1 cm in caliber. Irregularity of the gallbladder fundus with multiple cystic spaces suggests adenomyomatosis, a finding of no clinical significance. There is no evidence for a bowel obstruction. The appendix is moderately dilated, measuring 1.2 cm in caliber. The appendix is fluid-filled and contains appendicolith. There is moderate periappendiceal infiltration with no free air or abscess. There is left colon diverticulosis without evidence for acute diverticulitis. There is no lymphadenopathy. No suspicious skeletal lesions are present. There is a small fat-containing umbilical hernia. IMPRESSION: 1. Acute appendicitis. Moderate periappendiceal infiltration. No free air or abscess. 2. Mild dilatation of the common bile duct, a nonspecific finding which could be correlated with obstructive liver function tests. Electronically signed by: Miguel Waters M.D. 01/16/2017 5:19 PM Dictated Date/Time: 01/16/2017 5:13 PM
== END | disposition home or self-care (01) ==
LOC: C.CTS 14:48
PROVIDERS: ATTEND Nurse Practitioner Family
DX: K35.80 Unspecified acute appendicitis (principal)

== ENCOUNTER → 2017-02-20 | Outpatient (CLI) | payer OTHER ==
[~2017-02-20] MED LIST changes: +OXYC-57 PO
[2017-02-20 17:34] LABS: BASO % 0.3 %; BASO ABS # 0.02 K/uL (0-0.2); COMPLETE YES; HEMATOCRIT 38.2 % (37-47); IG% 0.3 %; LYMPH % 30.4 %; LYMPH ABS # 1.93 K/uL (1.2-3.4); MEAN CELL VOLUME 82.9 fL (80-100); MEAN CORPUSCULAR HEMOGLOBIN 28.2 pg (25-34); MEAN PLATELET VOLUME 11.9 fL (7.4-10.4); MONO % 7.9 %; NEUT % 58.1 %; PLATELET COUNT 190 K/uL (130-400); RED BLOOD COUNT 4.61 M/uL (4.2-5.4); WHITE BLOOD COUNT 6.34 K/uL (4.8-10.8)
[2017-02-20 18:05] LABS: ALT/SGPT 24 U/L (12-78); AST/SGOT 16 U/L (15-37); BLOOD UREA NITROGEN 13 mg/dl (7-18); BUN/CREATININE RATIO 21.5 (10-20); CALCIUM 8.7 mg/dl (8.5-10.1); CARBON DIOXIDE 32 mmol/L (21-32); CHLORIDE 101 mmol/L (98-107); CREATININE 0.61 mg/dl (0.60-1.20); GLUCOSE 101 mg/dl (70-99); POTASSIUM 3.6 mmol/L (3.5-5.1); SODIUM 139 mmol/L (136-145)
[2017-02-20 18:15] LABS: ALB/GLOB RATIO 1.1 (0.9-2); ALKALINE PHOSPHATASE 71 U/L (45-117); THYROID STIMULATING HORMONE 0.283 uIu/ml (0.300-4.500)
--- NOTE | 2017-02-24 14:00 | CODING QUERY MEDICAL NECESSITY ---
CQSUPPORTING DIAGNOSIS NEEDED A supporting diagnosis is required for the test/procedure performed on this patient in order for us to be reimbursed by the patient's insurance. Please provide a supporting diagnosis for the following test/procedure listed below next to the test name along with your signature. *If there is no additional diagnosis for this patient that would support the following test/procedure please document that below next to the test/procedure. Test(s)/Procedure(s) that require a supporting diagnosis: DOS 02/20/17 VITAMIN D TEST Provider Signature: Date: Thank you Juana Rodriguez Health Information Management Once completed, please kindly fax back to [phone] For questions please call [phone]
== END | disposition home or self-care (01) ==
LOC: C.LABPVFM 15:09
PROVIDERS: ATTEND Family Medicine
DX: D64.9 Anemia, unspecified (principal); R53.83 Other fatigue

== ENCOUNTER → 2017-06-15 | Outpatient (CLI) | payer OTHER ==
--- NOTE | 2017-06-15 14:04 | MAMMOGRAPHY REPORT ---
BILATERAL DIGITAL SCREENING MAMMOGRAM WITH CAD: 06/15/2017 CLINICAL HISTORY: Routine screening. Patient has no complaints. TECHNIQUE: Current study was also evaluated with a Computer Aided Detection (CAD) system. Bilateral CC and MLO views were obtained. COMPARISON: Comparison is made to exams dated: 06/08/2015 mammogram, 06/13/2016 mammogram, 06/04/2014 olive mogram, 05/29/2013 mammogram, 05/29/2012 mammogram, and 05/20/2011 mammogram - [facility]. BREAST COMPOSITION: The tissue of both breasts is almost entirely fatty. FINDINGS: No suspicious masses, calcifications, or areas of architectural distortion are noted in ei ther breast. There has been no significant interval change compared to prior exams. Scattered bilater al benign-appearing calcifications are not significantly changed. IMPRESSION: ACR BI-RADS CATEGORY 2: BENIGN There is no mammographic evidence of malignancy. A 1 year screening mammogram is recommended. The pa tient will receive written notification of the results. Approximately 10% of breast cancers are not detected with mammography. A negative mammographic report should not delay biopsy if a clinically suggestive mass is present. Tasneem Benson M.D. /:06/15/2017 08:21:37 Configurator: Opal Delgado [facility] letter sent: Normal 1/2 BI-RADS Code: ACR BI-RADS Category 2: Benign
== END | disposition home or self-care (01) ==
LOC: C.MAMM 08:02
PROVIDERS: ATTEND Obstetrics & Gynecology
DX: Z12.31 Encounter for screening mammogram for malignant neoplasm of breast (principal)

== ENCOUNTER → 2017-06-27 | Outpatient (CLI) | payer OTHER ==
[2017-06-27 12:49] LABS: CHOLESTEROL/HDL RATIO 4.6; THYROID STIMULATING HORMONE 0.146 uIu/ml (0.300-4.500)
== END | disposition home or self-care (01) ==
LOC: C.LABPVFM 08:45
PROVIDERS: ATTEND Family Medicine
DX: E89.0 Postprocedural hypothyroidism (principal); E78.5 Hyperlipidemia, unspecified

== ENCOUNTER → 2017-10-03 | Outpatient (CLI) | payer OTHER ==
[~2017-10-03] MED LIST changes: -OXYC-57 PO
--- NOTE | 2017-10-03 14:56 | DIAGNOSTIC IMAGING REPORT ---
L ANKLE MIN 3 VIEWS ROUTINE, L FOOT MIN 3 VIEWS ROUTINE CLINICAL HISTORY: 67 years-old Female presenting with FOOT PAIN LEFT 3 VIEWS. TECHNIQUE: Frontal, mortise, and lateral views of the left ankle were obtained. Additionally, frontal, oblique, and lateral views of the left foot were obtained. COMPARISON: None. FINDINGS: Left ankle: Ankle mortise intact. No acute fracture or malalignment. Minimal degenerative changes at the ankle mortise suggested by osteophytosis along the posterior malleolus. Prominent bone spur at the inferior calcaneus. Left foot: Degenerative changes of the tarsometatarsal articulations as well as the first metatarsophalangeal articulation. Hallux valgus deformity. More mild degenerative changes of the interphalangeal joint of the first toe suggested. Ossified body along the plantar and lateral aspect of the cuboid likely represents an os peroneum. No commencing evidence of acute fracture. IMPRESSION: 1. Mild degenerative changes of the ankle joint. 2. Degenerative changes of the first metatarsal articulations as well as the first metatarsophalangeal articulation and first interphalangeal joint. 3. Hallux valgus deformity. 4. No acute osseous injury of the ankle or foot. Electronically signed by: Daryl Lopez M.D. 10/03/2017 2:55 PM Dictated Date/Time: 10/03/2017 2:51 PM
[2017-10-03 17:59] LABS: BLOOD UREA NITROGEN 16 mg/dl (7-18); BUN/CREATININE RATIO 25.3 (10-20); CALCIUM 8.9 mg/dl (8.5-10.1); CARBON DIOXIDE 35 mmol/L (21-32); CHLORIDE 97 mmol/L (98-107); CREATININE 0.65 mg/dl (0.60-1.20); GLUCOSE 105 mg/dl (70-99); POTASSIUM 3.7 mmol/L (3.5-5.1); SODIUM 136 mmol/L (136-145)
[2017-10-03 18:11] LABS: THYROID STIMULATING HORMONE 0.172 uIu/ml (0.300-4.500)
== END | disposition home or self-care (01) ==
LOC: C.RADPV 14:29
PROVIDERS: ATTEND Family Medicine
DX: M20.12 Hallux valgus (acquired), left foot (principal); I10 Essential (primary) hypertension; E89.0 Postprocedural hypothyroidism

== ENCOUNTER → 2018-03-05 | Outpatient (CLI) | payer OTHER ==
--- NOTE | 2018-03-05 16:07 | DIAGNOSTIC IMAGING REPORT ---
R RIBS UNILATERAL WITH PA CHEST CLINICAL HISTORY: CHEST WALL PAIN RIB CONTUSION trauma COMPARISON STUDY: None FINDINGS: Negative right ribs. Negative chest. No evidence of pneumothorax. IMPRESSION: Negative study The above report was generated using voice recognition software. It may contain grammatical, syntax or spelling errors. Electronically signed by: Stevie Ward M.D. 03/05/2018 4:06 PM Dictated Date/Time: 03/05/2018 4:04 PM
== END | disposition home or self-care (01) ==
LOC: C.RADPV 15:39
PROVIDERS: ATTEND Family Medicine
DX: S20.219A Contusion of unspecified front wall of thorax, initial encounter (principal); R07.89 Other chest pain; X58.XXXA Exposure to other specified factors, initial encounter

== ENCOUNTER → 2018-06-18 | Outpatient (CLI) | payer OTHER ==
--- NOTE | 2018-06-18 13:10 | MAMMOGRAPHY REPORT ---
BILATERAL DIGITAL SCREENING MAMMOGRAM TOMOSYNTHESIS WITH CAD: 06/18/2018 CLINICAL HISTORY: Routine screening. Patient has no complaints. TECHNIQUE: The study was acquired using full field digital technology and interpreted from soft copy. Breast tomosynthesis in addition to standard 2D mammography was performed. Current study was also ev aluated with a Computer Aided Detection (CAD) system. COMPARISON: Comparison is made to exams dated: 06/15/2017 mammogram, 06/13/2016 mammogram, 06/08/2015 olive mogram, 06/04/2014 mammogram, 05/29/2012 mammogram, and 05/20/2011 mammogram - [facility]. BREAST COMPOSITION: There are scattered areas of fibroglandular density in both breasts. FINDINGS: The parenchymal pattern is unchanged. There are benign calcifications in both breasts. No developin g mass, architectural distortion or cluster of suspicious microcalcifications is seen in either breas t. IMPRESSION: ACR BI-RADS CATEGORY 2: BENIGN There is no mammographic evidence of malignancy. A 1 year screening mammogram is recommended.( 019) The patient will receive written notification of the results. Some breast cancers are not detected with mammography. A negative mammographic report should not rajinder y biopsy if a clinically suggestive mass is present. Marcie Treviño M.D. ay/:06/18/2018 09:42:04 Business Process Lead: RT Vickie(Vic)(M), [facility] letter sent: Normal 1/2 BI-RADS Code: ACR BI-RADS Category 2: Benign
== END | disposition home or self-care (01) ==
LOC: C.MAMM 08:55
PROVIDERS: ATTEND Obstetrics & Gynecology
DX: Z12.31 Encounter for screening mammogram for malignant neoplasm of breast (principal)

== ENCOUNTER → 2018-06-28 | Outpatient (CLI) | payer OTHER ==
[2018-06-28 16:11] LABS: ALBUMIN 3.8 gm/dl (3.4-5.0); ALKALINE PHOSPHATASE 65 U/L (45-117); ALT/SGPT 23 U/L (12-78); AST/SGOT 15 U/L (15-37); BLOOD UREA NITROGEN 17 mg/dl (7-18); CALCIUM 8.7 mg/dl (8.5-10.1); CARBON DIOXIDE 32 mmol/L (21-32); CHOLESTEROL 216 mg/dl (0-200); CREATININE 0.77 mg/dl (0.60-1.20); GLUCOSE 102 mg/dl (70-99); LDL CHOLESTEROL CALCULATED 130 mg/dl; POTASSIUM 3.6 mmol/L (3.5-5.1); SODIUM 139 mmol/L (136-145); TOTAL PROTEIN 7.4 gm/dl (6.4-8.2)
== END | disposition home or self-care (01) ==
LOC: C.LABPVFM 10:36
PROVIDERS: ATTEND Family Medicine
DX: L85.8 Other specified epidermal thickening (principal)